=== PATIENT | female | born 1945 | race Caucasian/White ===

== ENCOUNTER 2020-08-18 19:04 | Emergency (ER) | payer OTHER, BC ==
[~2020-08-18] VITALS: Ht 172.7 cm; Wt 95.3 kg
[2020-08-18] MEDS ORDERED: BREO ELLIPTA 11 EACH INH (19:14)
[2020-08-18] MEDS ORDERED: SINGULAIR 10 MG10 M1 PO (19:15)
[2020-08-18] MEDS ORDERED: ELIQUIS5 MG PO (19:15)
[2020-08-18] MEDS ORDERED: PROLIA60 MG/1 ML SUBQ (19:15)
[2020-08-18] MEDS ORDERED: FLECAINIDE ACET50 M2 PO (19:16)
[2020-08-18 19:52] LABS: URINE BILIRUBIN NEGATIVE (Negative); URINE BLOOD TRACE (Negative); URINE CLARITY CLEAR; URINE COLOR YELLOW; URINE GLUCOSE-RANDOM* NEGATIVE (Negative); URINE KETONES NEGATIVE (Negative); URINE LEUKOCYTES-REFLEX NEGATIVE (Negative); URINE NITRITE-REFLEX NEGATIVE (Negative); URINE PROTEIN (DIPSTICK) NEGATIVE (Negative); URINE SPECIFIC GRAVITY 1.015 (1.005-1.035); URINE UROBILINOGEN 0.2 E.U./dl (0.2-1.0)
[2020-08-18 20:34] VITALS: BP 174/67
== END 2020-08-18 20:52 | disposition home or self-care (01) ==
LOC: ER 19:04
PROVIDERS: Nurse Practitioner
DX: R33.8 Other retention of urine (principal); I48.91 Unspecified atrial fibrillation; J45.909 Unspecified asthma, uncomplicated; M81.0 Age-related osteoporosis without current pathological fracture; Z98.890 Other specified postprocedural states; Z79.899 Other long term (current) drug therapy; Z88.8 Allergy status to other drugs, medicaments and biological substances; Z88.1 Allergy status to other antibiotic agents; Z88.6 Allergy status to analgesic agent; Z91.048 Other nonmedicinal substance allergy status; Z88.2 Allergy status to sulfonamides

== ENCOUNTER 2020-08-27 09:44 | Emergency (ER) | payer OTHER, BC ==
[~2020-08-27] VITALS: Ht 172.7 cm; Wt 111.1 kg
[~2020-08-27 09:44] MED LIST: BREO ELLIPTA 11 EACH INH; ELIQUIS5 MG PO; FLECAINIDE ACET50 M2 PO; PROLIA60 MG/1 ML SUBQ; SINGULAIR 10 MG10 M1 PO
[2020-08-27 10:16] LABS: URINE BILIRUBIN NEGATIVE (Negative); URINE BLOOD NEGATIVE (Negative); URINE CLARITY CLEAR; URINE COLOR YELLOW; URINE GLUCOSE-RANDOM* NEGATIVE (Negative); URINE KETONES NEGATIVE (Negative); URINE LEUKOCYTES-REFLEX NEGATIVE (Negative); URINE NITRITE-REFLEX NEGATIVE (Negative); URINE PROTEIN (DIPSTICK) NEGATIVE (Negative); URINE UROBILINOGEN 0.2 E.U./dl (0.2-1.0)
[2020-08-27 10:49] LABS: ABSOLUTE NEUTROPHILS 4.1 thou/uL (1.4-8.2); BASOPHILS 0.8 % (0.0-2.0); HEMATOCRIT 38.4 % (37.0-47.0); HEMOGLOBIN 12.7 gm/dL (12.0-15.0); LYMPHOCYTES 24.5 % (24.0-44.0); MCH 32.6 pg (26.0-34.0); MCV 98.7 fL (80.0-100.0); MONOCYTES 10.6 % (1.0-8.0); PLATELET COUNT 308 thou/uL (150-400); POLYS 62.1 % (36.0-66.0); RBC 3.89 mil/uL (4.20-5.00); RDW 13.5 % (10.5-14.5); WBC 6.5 thou/uL (4.0-11.0)
[2020-08-27 10:50] LABS: CALCIUM 9.6 mg/dL (8.5-10.1); CREATININE 0.8 mg/dL (0.6-1.0); POTASSIUM 4.1 mmol/L (3.5-5.1)
[2020-08-27 10:53] LABS: ALBUMIN 3.6 g/dL (3.4-5.0); TOTAL BILIRUBIN 0.4 mg/dL (0.2-1.0); TOTAL PROTEIN 7.1 g/dL (6.4-8.2)
[2020-08-27 11:24] VITALS: BP 165/72
--- NOTE | 2020-08-27 12:33 | EKG ---
[place] [address] [facility] [email or web address] [address] ELECTROCARDIOGRAM REPORT Name: EMELIALILOJOANNA Room #: CRISTA Shepard#: [id number] Admission: 08/27/20 Attend Phys: Discharge: 08/27/20 Date of : 43 Report #: [id number] [facility] ED Test Date: 2020-08-27 Test Time: 10:10:43 Pat Name: JOANNA KAPOOR Department: Room: Gender: F [employer] Waiter/Waitress: jose e : 1945 Requested By: Uriah Christiansen Order Number: [id number] MD: Elfego Lock Measurements Intervals [place] Rate: 71 P: 73 VA: 163 QRS: 34 QRSD: 109 T: 27 QT: 389 QTc: 423 Interpretive Statements Sinus rhythm No previous ECG available for comparison Electronically Signed On 08-27-2020 12:32:58 INFRASTRUCTURE ANALYST by Elfego Lock [email or web address] <ELECTRONICALLY SIGNED> By: Elfego Lock MD, [facility] 08/27/20 1232 1010 1010 Elfego Lock MD, FACC /EPI
== END 2020-08-27 11:24 | disposition home or self-care (01) ==
LOC: ER 09:44
PROVIDERS: Emergency Medicine
DX: R35.0 Frequency of micturition (principal); R53.83 Other fatigue; I48.91 Unspecified atrial fibrillation; J45.909 Unspecified asthma, uncomplicated; Z79.899 Other long term (current) drug therapy; Z88.0 Allergy status to penicillin; Z88.1 Allergy status to other antibiotic agents; Z88.8 Allergy status to other drugs, medicaments and biological substances; Z87.891 Personal history of nicotine dependence